=== PATIENT | female | born 1995 | race Caucasian/White ===

== ENCOUNTER 2017-12-31 01:35 | Emergency (ER) | payer MEDICAID, OTHER ==
[~2017-12-31] VITALS: Ht 165.1 cm; Wt 59.0 kg
[~2017-12-31 01:35] MED LIST: UNK MEDS
[2017-12-31 03:17] LABS: BASOPHILS % 0.2 % (0.0-2.0); EOSINOPHILS % 0.4 % (0.0-5.0); HEMATOCRIT. 38.1 % (36.0-48.0); HEMOGLOBIN. 12.8 g/dL (12.0-16.0); LYMPHOCYTES % 22.5 % (20.0-50.0); MEAN CORPUSCULAR HEMOGLOBIN 28.7 pg (28.0-32.0); MEAN CORPUSCULAR VOLUME 85.4 fL (81.0-99.0); MEAN PLATELET VOLUME 9.8 fl (7.4-10.4); MONOCYTES % 8.1 % (2.0-8.0); NEUTROPHILS % 68.8 % (40.0-76.0); PLATELET 242 x1000/uL (130-400); RED BLOOD CELL COUNT 4.46 mill/uL (4.2-5.4); RED CELL DISTRIBUTION WIDTH 15.7 % (11.6-14.6)
[2017-12-31 03:20] LABS: HCG SCREEN NEGATIVE
[2017-12-31 03:25] LABS: CHLORIDE 106 mEq/L (98-107)
[2017-12-31 03:28] LABS: ETHANOL BLOOD < 10 mg/dL
[2017-12-31 04:37] LABS: CLARITY URINE TURBID (CLEAR); COLOR URINE DARK YELLOW (YELLOW); KETONES URINE 2+ (NEGATIVE); LEUKOCYTE ESTERASE URINE 1+ (NEGATIVE); NITRITE URINE NEGATIVE (NEGATIVE); OCCULT BLOOD URINE NEGATIVE (NEGATIVE); PROTEIN URINE TRACE (NEGATIVE)
[2017-12-31 04:54] LABS: *AMPHETAMINES SCREEN URINE NEGATIVE (NEGATIVE); *BARBITURATES SCREEN URINE NEGATIVE (NEGATIVE); *BENZODIAZEPINES SCREEN URINE NEGATIVE (NEGATIVE); *COCAINE SCREEN URINE NEGATIVE (NEGATIVE)
[2017-12-31 04:55] LABS: CANNABINOID URINE SCREEN NEGATIVE (NEGATIVE); METHADONE URINE SCREEN NEGATIVE (NEGATIVE); OPIATES URINE SCREEN NEGATIVE (NEGATIVE); PHENCYCLIDINE URINE SCREEN NEGATIVE (NEGATIVE)
[2017-12-31] MEDS ORDERED: ARIPIPRAZOLE 15MG TABLET PO ONE (05:45)
[2017-12-31] MEDS ORDERED: CEFTRIAXONE SODIUM 250 MG/VIAL IM ONE (06:15)
[2017-12-31] MEDS ORDERED: SODIUM CHLORIDE 0.9% 1,000 ML IV ONE (06:15)
[2017-12-31] MEDS ORDERED: LIDOCAINE HCL 1% 20ML VIAL (Pyxis) INJ INFIL ONE (06:15)
[2017-12-31] MEDS ORDERED: POTASSIUM CHLORIDE 10MEQ TABLET SR PO SCH (06:15)
[2017-12-31] MEDS ORDERED: LIDOCAINE HCL/PF 1% 10 MG/ML 5ML VIAL IJ SCH (06:30)
[2017-12-31 20:17] VITALS: BP 104/66
== END 2017-12-31 20:10 | disposition home or self-care (01) ==
LOC: ER 01:35
DX: F99 Mental disorder, not otherwise specified (principal); F91.8 Other conduct disorders; Z91.14 Patient's other noncompliance with medication regimen
CPT/HCPCS: 36415; 70450; 80048; 80305; 80307; 80329; 81003; 81025; 84703; 85025; 99285; G0482; J0696; J3490; J7030; Z7610